=== PATIENT | female | born 1950 | race Caucasian/White ===

== ENCOUNTER 2017-12-05 05:48 | Day surgery (SDC) | payer OTHER ==
[~2017-12-05 05:48] MED LIST: FOSAMAX70 MG PO; INTEGRA PLUS C1 EACH PO; LOSARTAN-HCTZ1 EACH PO; OXYC1TAB9 PO; XARELTO10 MG PO
[2017-12-05] MEDS ORDERED: PERCOCET 5-3251 EACH PO (11:42)
== END 2017-12-05 18:44 | disposition home or self-care (01) ==
LOC: CIR.AMB 05:48
DX: D34 Benign neoplasm of thyroid gland (principal)